=== PATIENT | female | born 1995 | race Two or more races ===

== ENCOUNTER 2016-09-15 22:01 | Emergency (ER) | payer SELFPAY ==
[2016-09-15 22:17] VITALS: RESP 18
[2016-09-15] MEDS ORDERED: ACETAMINOPHEN 500 MG TAB PO ONE (22:28)
[2016-09-15] MEDS ORDERED: NS 1,000 ML IV ONE (23:42)
[2016-09-15] MEDS ORDERED: IBUPROFEN 600 MG TAB PO ONE (23:42)
[2016-09-15 23:57] VITALS: BP 112/72; PULSE 117; O2SAT 98
[2016-09-16 00:23] VITALS: TEMP 98.6
--- NOTE | 2016-09-16 00:53 | EDPHY ---
H & P Stated Complaint: sinus congestion Time Seen by Provider: 09/15/16 23:37 HPI/ROS: Chief Complaint: Fever, sore throat, chills HPI: 20-year-old female presenting with 1 day of fevers and chills accompanied by some sore throat and sinus pain. No cough. No shortness of breath, no abdominal pain, no nausea or vomiting, no urinary urgency or frequency. Last menstrual. Is now. Patient has an IUD in place. She did take some ibuprofen at about 7 o'clock this evening. No medications since. ROS: 10 point Review of Systems is negative except as noted in the HPI. PMH: None Medications: None Allergies: Shanelle-D Social History: No smoking, occasional alcohol, occasional marijuana Family History: non-contributory Physical Exam: Gen: Awake, Alert, No Distress HEENT: Nose: no rhinorrhea Eyes: PERRLA, EOMI Mouth: Moist mucosa mild oral pharyngeal erythema without edema or exudate Neck: Supple, no JVD Chest: nontender, lungs clear to auscultation Heart: S1, S2 normal, no murmur Abd: Soft, non-tender, no guarding Back: no CVA tenderness, no midline tenderness Ext: no edema, non-tender Skin: no rash Neuro: CN II-XII intact, Sensation grossly intact, Strength 5/5 in bilateral upper and lower extremities - Personal History LMP (Females 10-55): 1-7 Days Ago Current Tetanus/Diphtheria Vaccine: Yes Current Tetanus Diphtheria and Acellular Pertussis (TDAP): Yes - Medical/Surgical History Hx Asthma: No Hx Chronic Respiratory Disease: No Hx Diabetes: No Hx Cardiac Disease: No Hx Renal Disease: No Hx Cirrhosis: No Hx Alcoholism: No Hx HIV/AIDS: No Hx Splenectomy or Spleen Trauma: No Other PMH: sinus surgery 5 yr ago - Social History Smoking Status: Current some day smoker Constitutional: Initial Vital Signs Temperature (C) 39.2 C H 09/15/16 22:13 Heart Rate 134 H 09/15/16 22:13 Respiratory Rate 18 09/15/16 22:13 Blood Pressure 99/64 L 09/15/16 22:13 O2 Sat (%) 96 09/15/16 22:13 O2 Delivery Mode Room Air Allergies/Adverse Reactions: fexofenadine [From Shanelle-D] Allergy (Verified 09/15/16 22:13) pseudoephedrine [From Shanelle-D] Allergy (Verified 09/15/16 22:13) Home Medications: Medication Instructions Recorded NK [No Known Home Meds] 09/15/16 Medical Decision Making ED Course/Re-evaluation: 20-year-old with viral symptoms with no focal infection. She is tachycardic and dehydrated here. Patient has been given IV fluids. She has been given Tylenol. She has defervesced. Tachycardia has improved. She is tolerating p.o. fluids. She is smiling and interactive. Certainly she is not toxic appearing in any way. Will discharge with instructions follow up with her physician in 2-3 days. Alternate ibuprofen with acetaminophen every 3-4 hours as needed for fevers or chills. Return for worsening. - Data Points Medications Given: Discontinued Medications Acetaminophen (Tylenol) 1,000 mg PO EDNOW ONE Stop: 09/15/16 22:29 Last Admin: 09/15/16 22:33 Dose: 1,000 mg Sodium Chloride (Ns) 1,000 mls @ 0 mls/hr IV ONCE ONE PRN Reason: Wide Open Stop: 09/15/16 23:43 Last Admin: 09/15/16 23:45 Dose: 1,000 mls Ibuprofen (Motrin) 600 mg PO EDNOW ONE Stop: 09/15/16 23:43 Last Admin: 09/15/16 23:46 Dose: 600 mg Departure - Departure Disposition: Home, Routine, Self-Care Clinical Impression: Viral illness Condition: Good Instructions: Viral Syndrome (ED) Additional Instructions: Alternate acetaminophen with ibuprofen every 3-4 hours for fevers and chills. Follow up with primary care physician in 2-3 days for re-evaluation. Return to the emergency depart for increasing fevers, chills, sore throat, cough , abdominal pain, or any other concerns. Referrals: NONE *PRIMARY CARE P,. [Primary Care Provider] - As per Instructions
== END 2016-09-16 01:02 | disposition home or self-care (01) ==
DX: B34.9 Viral infection, unspecified (principal); F17.200 Nicotine dependence, unspecified, uncomplicated; E86.0 Dehydration